=== PATIENT | female | born 1955 | race Caucasian/White ===

== ENCOUNTER 2021-04-07 11:48 | Outpatient (REF) | payer MEDICAID, SELFPAY ==
--- NOTE | ~2021-04-07 | XR_ITS ---
EXAMINATION: XR FOOT, RIGHT CLINICAL INFORMATION: Trauma/dropped something on foot. COMPARISON: None TECHNIQUE: AP, lateral, and oblique views of the right foot. FINDINGS: No fracture or dislocation is seen. There is hallux valgus deformity and degenerative change at the first MTP joint. Joint spaces are otherwise normal. There is soft tissue swelling adjacent to the first MTP joint. Soft tissues are otherwise normal. XR/XR foot RT min 3V IMPRESSION: No fracture is seen. Degenerative change and hallux valgus deformity at the first MTP joint.
== END 2021-04-07 11:49 | disposition home or self-care (01) ==
LOC: HO.XRAY 11:48
PROVIDERS: Absent Provider Internal Medicine; PCP Internal Medicine; Visit Provider General Practice
DX: S99.921D Unspecified injury of right foot, subsequent encounter (principal)
CPT/HCPCS: 73630

== ENCOUNTER 2021-11-15 13:56 | Outpatient (REF) | payer MEDICAID, SELFPAY ==
--- NOTE | ~2021-11-15 | XR_ITS ---
EXAMINATION: XR foot RT min 3V, XR foot LT min 3V CLINICAL INFORMATION: Foot pain COMPARISON: Foot radiographs 04/07/2021 TECHNIQUE: 3 views of the bilateral feet XR/XR foot LT min 3V FINDINGS/IMPRESSION: RIGHT FOOT: No fracture or dislocation. Hallux valgus deformity of the first metatarsophalangeal joint with mild degenerative narrowing. Joint spaces are otherwise maintained. No cortical erosion. No joint effusion. Soft tissues are unremarkable. LEFT FOOT: No fracture or dislocation. Hallux valgus deformity of the first metatarsophalangeal joint with mild degenerative changes and lateral subluxation of the first proximal phalanx with respect to the metatarsal head. Degenerative spurring of the dorsal midfoot. No cortical erosion. No joint effusion. Soft tissues are unremarkable.
--- NOTE | ~2021-11-15 | XR_ITS ---
EXAMINATION: XR foot RT min 3V, XR foot LT min 3V CLINICAL INFORMATION: Foot pain COMPARISON: Foot radiographs 04/07/2021 TECHNIQUE: 3 views of the bilateral feet XR/XR foot RT min 3V FINDINGS/IMPRESSION: RIGHT FOOT: No fracture or dislocation. Hallux valgus deformity of the first metatarsophalangeal joint with mild degenerative narrowing. Joint spaces are otherwise maintained. No cortical erosion. No joint effusion. Soft tissues are unremarkable. LEFT FOOT: No fracture or dislocation. Hallux valgus deformity of the first metatarsophalangeal joint with mild degenerative changes and lateral subluxation of the first proximal phalanx with respect to the metatarsal head. Degenerative spurring of the dorsal midfoot. No cortical erosion. No joint effusion. Soft tissues are unremarkable.
--- NOTE | ~2021-11-15 | XR_ITS ---
EXAMINATION: XR cervical spine 5V CLINICAL INFORMATION: Pain COMPARISON: None TECHNIQUE: 5 views of the cervical spine were obtained. XR/XR cervical spine 5V FINDINGS/IMPRESSION: The cervical spine is visualized to the level of C7 on the lateral view. Loss of the usual cervical spine lordosis which may be due to positioning or muscle spasm. 2 mm of anterolisthesis of C4 on C5. Vertebral body heights are maintained. Lateral masses of C1 are well aligned on C2. Visualized portion of the dens is intact. Moderate degenerative disc disease at C5-C6, manifested by loss of disc space height, degenerative spurring and facet arthropathy. No significant neural foraminal narrowing. No prevertebral soft tissue swelling. Partially imaged median sternotomy wires and mediastinal surgical clips.
== END 2021-11-15 13:57 | disposition home or self-care (01) ==
LOC: HO.XRAY 13:56
PROVIDERS: PCP Internal Medicine; Visit Provider Internal Medicine
DX: M54.2 Cervicalgia (principal); M79.671 Pain in right foot; M79.672 Pain in left foot
CPT/HCPCS: 72050; 73630

== ENCOUNTER 2022-04-28 09:00 | Outpatient (RCR) | payer MEDICAID, SELFPAY | END 2022-04-29 09:47 | disposition home or self-care (01) | LOC: HO.PTCHIC 09:00 | PROVIDERS: PCP Internal Medicine; Visit Provider Internal Medicine | DX: M54.2 Cervicalgia (principal) | CPT/HCPCS: 97110; 97140; 97161; 97162 ==

== ENCOUNTER 2023-09-29 09:18 | Outpatient (REF) | payer MEDICARE, MEDICAID, SELFPAY ==
[2023-09-29 14:30] LABS: MANUAL DIFF FLAG NO
[2023-09-29 14:36] LABS: Basophils Percent Auto 0.6 % (0-2); Eosinophils Absolute Auto 0.1 X10*3/uL (0.0-0.4); Eosinophils Percent Auto 1.2 % (0-4); Hematocrit 41.8 % (37.0-47.0); Hemoglobin 13.7 g/dl (12.0-16.0); Imm Gran Abs Auto 0.01 X10*3/uL (0.00-0.03); Imm Gran Pct Auto 0.2 % (0.0-0.4); Lymphocytes Absolute Auto 1.9 X10*3/uL (1.2-4.9); Lymphocytes Percent Auto 38.4 % (20-40); Mean Corpuscular HGB Conc 32.8 g/dl (31.0-35.0); Mean Corpuscular Volume 88.4 fL (80.0-98.0); Mean Platelet Volume 11.4 fL (9.4-12.3); Monocytes Absolute Auto 0.3 X10*3/uL (0.1-1.2); Monocytes Percent Auto 6.3 % (2-11); Neutrophils Absolute Auto 2.7 x10*3/uL (2.0-8.3); Neutrophils Percent Auto 53.3 % (45-73); Platelet Count 224 X10*3/uL (160-400); Red Blood Count 4.73 X10*6/uL (4.20-5.50); Red Cell Distribution Width 13.8 % (11.0-16.0); White Blood Count 5.1 X10*3/uL (4.8-10.8)
[2023-09-29 14:57] LABS: Alanine Aminotransferase 24 U/L (0-31); Albumin Level 4.3 g/dL (3.5-5.0); Alkaline Phosphatase 94 U/L (39-117); Anion Gap 12 (12-20); Aspartate Amino Transferase 21 U/L (5-31); Bilirubin Total 0.6 mg/dL (0.0-1.0); Blood Urea Nitrogen 21 mg/dL (9-16); Calcium 9.4 mg/dL (8.4-10.2); Carbon Dioxide 27 mmol/L (22-29); Chloride 104 mmol/L (96-108); Cholesterol 148 mg/dL (<200); Estimated Glomerular Filt Rate > 60; Glucose Random 113 mg/dL (60-115); HDL Cholesterol 31 mg/dL (>40); LDL Cholesterol Calculated 58 mg/dL (<100); Potassium 4.2 mmol/L (3.3-5.1); Sodium 139 mmol/L (135-145); Total Protein 7.2 g/dL (6.5-8.0); Triglycerides 298 mg/dL (<150)
[2023-09-29 15:14] LABS: TSH reflex Free T4 5.64 uIU/mL (0.32-4.0)
[2023-09-29 15:48] LABS: Free T4 (Free Thyroxine) 1.08 ng/dL (0.71-1.85)
== END 2023-09-29 09:19 | disposition home or self-care (01) ==
LOC: HO.CHCLDS 09:18
PROVIDERS: Visit Provider Internal Medicine
DX: E11.69 Type 2 diabetes mellitus with other specified complication (principal)
CPT/HCPCS: 36415; 80053; 80061; 84439; 84443; 85025

== ENCOUNTER 2024-03-22 12:44 | Outpatient (REF) | payer MEDICARE, MEDICAID, SELFPAY ==
[2024-03-22 14:53] LABS: Cholesterol 128 mg/dL (<200); HDL Cholesterol 34 mg/dL (>40); LDL Cholesterol Calculated 64 mg/dL (<100); Triglycerides 154 mg/dL (<150)
[2024-03-22 15:08] LABS: TSH reflex Free T4 0.06 uIU/mL (0.32-4.0)
[2024-03-22 19:16] LABS: Free T4 (Free Thyroxine) 1.11 ng/dL (0.71-1.85)
[2024-03-23 04:14] LABS: ~HepC Num1 0.12 S/CO (0.00-0.79); ~Hepatitis C Antibody Nonreactive (Nonreactive)
== END 2024-03-22 12:45 | disposition home or self-care (01) ==
LOC: HO.CHCLDS 12:44
PROVIDERS: Visit Provider Internal Medicine
DX: E03.8 Other specified hypothyroidism (principal); E78.2 Mixed hyperlipidemia; I10 Essential (primary) hypertension; E11.69 Type 2 diabetes mellitus with other specified complication
CPT/HCPCS: 36415; 80061; 84439; 84443; 86803

== ENCOUNTER 2025-02-05 07:45 | Outpatient (REF) | payer MEDICARE, MEDICAID, SELFPAY ==
--- NOTE | ~2025-02-05 | CT_ITS ---
EXAMINATION: CT HEAD WITHOUT CONTRAST CLINICAL INFORMATION: History of a fall with memory disturbances and headache COMPARISON: None available. TECHNIQUE: Contiguous axial imaging was performed from the skull base to vertex without intravenous administration of contrast. This CT examination was performed using dose optimization techniques as appropriate, variously including the following: *Automated exposure control *Adjustment of mA and/or kV according to patient size (this includes techniques or standardized protocols for targeted exams where dose is matched to indication/reason for exam; i.e. extremities or head) *Use of iterative reconstruction technique DLP: 779 mGy-cm FINDINGS: No acute intracranial hemorrhage, mass effect, midline shift, hydrocephalus or herniation. Dick-white matter differentiation is normal. Posterior cranial fossa contents demonstrated no gross mass effect or intracranial hemorrhage. Sellar/suprasellar region demonstrated no gross masses. Craniocervical junction demonstrates normal position of the cerebellar tonsils. Calcified plaques in the cavernous supracavernous segments both ICAs. Poor pneumatization frontal sinuses. No air-fluid levels in the included paranasal sinuses. Tympanic cavities and mastoid antrums are aerated. Poor pneumatization mastoid air cells. CT/CT head/brain wo IV con IMPRESSION: No acute intracranial hemorrhage or gross abnormality by CT. Atherosclerosis disease. Electronically signed by: Roger Arteaga MD 02/05/2025 01:08 PM EDT
--- OUTSIDE RECORDS SUMMARY | 2025-02-05 07:47 | XMS_ITS | Encounter Summary ---
Author Organization [employer] Address [address] [facility] 7[address] [place] [address] Care Team Providers Care Automotive Shop Foreman Name Role Phone Celia Butler MD Primary Care Provider [phone] Encounter Details Date Type Department Care Team ([facility] st Contact Info) Description 03/22/2024 Orders Only [facility] CHC MED & PEDS [address] [place], [place] [phone] Celia Butler MD [address] [place] [address] Other specified hypothyroidism (Primary Dx); Chronic pain syndrome; Primary osteoarthritis, other specified site; Primary osteoarthritis of both knees Social History Tobacco Use Types Packs/Day Years Used Date Smoking Tobacco: Former Cigarettes Q uit: 08/07/2016 Passive Smoke Exposure: Never Smokeless Tobacco: Never Alcohol Use Standard Drinks/Week Comments Never 0 (1 standard drink = 0.6 oz pur e alcohol) Depression Answer Date Recorded Patient Health Questionnaire-9 Score 7 03/21/2024 Patient Health Questionnaire-9 Score 7 03/21/2024 Last PHQ-9: Questionnaire Data Not on file 0 03/21/2024 Housing Stability Answer Date Recorded What is your housing situation today? I have merrill lackey 10/18/[address] you li ve. Do you have problems with any of the following? None of the above 10/18/2023 Food Insecurity Answer Date Recorded Within the past 12 months, y ou worried that your food would run out before you got money to buy more: Never True 10/18/2023 Within the past 12 months,th e food you bought just didn't last and you didn't have enough money to get more: Never True Transportation Answer Date Recorded In the past 12 months, has l ack of transportation kept you from medical appts, meetings, work or from getting things needed for daily living? No 10/18/2023 Utilities Answer Date Recorded In the past 12 months, has t he electric, gas, oil or water company threatened to shut off services in your home? No 10/18/2023 Depression Answer Date Recorded Patient Health Questionnaire-2 Score 3 03/21/2024 Comments Unknown Sex and Gender Information Value Date Recorded Sex Assigned at Female 06/06/2022 10:28 AM EDT Legal Sex Female 10:28 AM EDT Gender Identity Female 06/06/2022 10:28 AM EDT Sexual Orientation Straight 06/06/2022 10 :28 AM EDT documented as of this encounter Plan of Treatment Not on file documented as of this encounter Procedures Procedure Name Priority Date/Time Associated Diagnosis Comments T4, FREE Routine 03/22/2024 12:52 PM EDT Other specified hypothyroidism documented in this encounter Results * T4, Free (03/22/2024 12:52 PM EDT) Free T4 (Free Thyroxine) 1.11 0.71 - 1.85 ng/dL [facility] 03/22/2024 12:5 2 PM EDT 03/22/2024 2:23 PM EDT Celia Butler MD LAB BLOOD ORDERABLES Final Result [facility] [address] [place] [address] [phone] documented in this encounter Visit Diagnoses Diagnosis Other specified hypothyroidism- Primary Chronic pain syndrome Primary osteoarthritis, other specified site Primary osteoarthritis of both knees documented in this encounter Additional Health Concerns Assessment Noted Time PHQ-9 Depression Total Score: 7 03/21/20 24 3:53 PM EDT documented as of this encounter Care Teams Automotive Shop Foreman Relationship Specialty Start Date End Date Celia Butler MD [address] [place] [address] PCP - General Internal Medicine 05/05/15 documented as of this encounter
== END 2025-02-05 07:46 | disposition home or self-care (01) ==
LOC: HO.CT 07:45
PROVIDERS: PCP Internal Medicine; Visit Provider Internal Medicine
DX: R51.9 Headache, unspecified (principal); R41.3 Other amnesia
CPT/HCPCS: 70450

== ENCOUNTER → 2025-02-05 07:49 | Outpatient (BNV) | payer MEDICARE, MEDICAID, SELFPAY | PROVIDERS: PCP Internal Medicine; Visit Provider Radiology Diagnostic Radiology | DX: I67.2 Cerebral atherosclerosis (principal) | CPT/HCPCS: 70450 ==

== ENCOUNTER 2025-03-28 11:14 | Outpatient (REF) | payer MEDICARE, MEDICAID, SELFPAY ==
--- OUTSIDE RECORDS SUMMARY | 2016-07-04 01:00 | XMS_ITS | Encounter Summary ---
Author Organization [facility] Address [address] [facility] [address] [place] [address] Phone Care Team Providers Care Paramedic Supervisor Name Role Phone Gabby Medinafer Primary Care Provider [phone] Encounter Details Date Type Department Care Team (Late st Contact Info) Description 07/04/2016 Hospital Encounter [facility] General Imaging [address] [place] [address] Audi Ramirez MD 15 [facility]/Admin Bldg/Carlos Benavides [facility]/Floor [address] [place] [address] [email or web address] Social History Tobacco Use Types Packs/Day [...] (No Interpretation) (07/04/2016 12:00 AM EST) Narrative [facility] IMG INTERFACES - 08/23/2016 11:50 AM EST This study is for PACS storage only and not for interpretation. Audi Ramirez MD IMG OUTSIDE IMAGING W/OUT INTERP RETATION Final Result [facility] documented in this encounter Visit Diagnoses Not on filedocumented in this encounter Care Teams Paramedic Supervisor Relationship Specialty Start Date End Date Raissa Medina DO [address] [place] [phone] PCP - General Family Medicine 01/05/15 08/16/16 documented as of this encounter Additional Source Comments The information contained in this document represents components of the legal health record. It is not the complete legal health record.[facility]
--- OUTSIDE RECORDS SUMMARY | 2025-03-28 11:21 | XMS_ITS | Encounter Summary ---
Author Organization [employer] Address [address] [facility] 7t [place] [address] Care Team Providers Care Geotechnicial Properties Technician Name Role Phone Celia Butler MD Primary Care Provider [phone] Encounter Details Date Type Department Care Team ([facility] st Contact Info) Description 03/22/2024 Orders Only [facility] CHC MED & PEDS [address] [employer], [place] [phone] Celia Butler MD [address] [place] [address] Other specified hypothyroidism (Primary Dx); Chronic pain [...] as of this encounter Plan of Treatment Upcoming Encounters Date Type Department Care Team (Late st Contact Info) Description 04/28/2025 10:00 AM EDT Clinical Support [facility] [address] [place] [address] documented as of this encounter Procedures Procedure Name Priority Date/Time Associated Diagnosis Comments T4, FREE Routine 03/22/2024 12:52 PM EDT Other specified hypothyroidism documented in this encounter Results * T4, Free (03/22/2024 12:52 PM EDT) Free T4 (Free Thyroxine) 1.11 0.71 - 1.85 ng/dL [facility] 03/22/2024 12:5 2 PM EDT 03/22/2024 2:23 PM EDT us Celia Butler MD LAB BLOOD ORDERABLES Final Result [facility] [address] [place] [address] [phone] documented in this encounter Visit Diagnoses Diagnosis Other specified hypothyroidism- Primary Chronic pain syndrome Primary osteoarthritis, other specified site Primary osteoarthritis of both knees documented in this encounter Additional Health Concerns Assessment Noted Time PHQ-9 Depression Total Score: 7 03/21/20 24 3:53 PM EDT documented as of this encounter Care Teams Geotechnicial Properties Technician Relationship Specialty Start Date End Date Celia Butler MD [address] [place] [id number] PCP - General Internal Medicine 05/05/15 documented as of this encounter
[2025-03-28 16:43] LABS: Microalbum/Creatinine Ratio Ur 6.0 ug/mg cr (<30)
[2025-03-28 16:47] LABS: Anion Gap 13 (12-20); Blood Urea Nitrogen 15 mg/dL (9-16); Calcium 9.4 mg/dL (8.4-10.2); Carbon Dioxide 24 mmol/L (22-29); Chloride 105 mmol/L (96-108); Estimated Glomerular Filt Rate > 60; Potassium 4.2 mmol/L (3.3-5.1); Sodium 138 mmol/L (135-145)
[2025-03-28 17:10] LABS: Folate 7.4 ng/mL (> or = 4.0); Vitamin B12 297 pg/mL (200-900)
== END 2025-03-28 11:15 | disposition home or self-care (01) ==
LOC: HO.CHCLDS 11:14
PROVIDERS: Visit Provider Internal Medicine
DX: E11.69 Type 2 diabetes mellitus with other specified complication (principal); R41.3 Other amnesia
CPT/HCPCS: 36415; 80048; 82043; 82570; 82607; 82746; 84443

== ENCOUNTER 2025-04-21 10:38 | Outpatient (AMB) | payer MEDICARE, MEDICAID, SELFPAY ==
--- OUTSIDE RECORDS SUMMARY | 2016-07-04 01:00 | XMS_ITS | Encounter Summary ---
Author Organization [facility] Address [address] [facility] [address] [place] [phone] Phone Care Team Providers Care Bobbin Collector Name Role Phone Gabby Medinafer Primary Care Provider [phone] Encounter Details Date Type Department Care Team (Late st Contact Info) Description 07/04/2016 Hospital Encounter [facility] General Imaging [address] [place] [address] Audi Ramirez MD [address] [facility]/Admin Bldg/Carlos Benavides [facility]/Floor [address] [place] [address] [email or web address] Social History Tobacco Use Types Packs/Day Years Used Date Smoking Tobacco: Former Cigarettes Q uit: 07/13/2016 Smokeless Tobacco: Never Comments:1/2ppd x 3 years, n one x 7yrs , previously 1ppd for years Alcohol Use Standard Drinks/Week Comments No 0 (1 standard drink = 0.6 oz pur e alcohol) rare Education Answer Date Recorded Are you interested in more education? Not on jada e 12/01/2022 Are you concerned about learning? Not on file 12/01/2022 No 12/01/2022 No 12/01/2022 Digital Access Answer Date Recorded No 12/30/2022 No 12/30/2022 Reliable internet access at home? Not on file 12/30/2022 Device with a working camera? Not on file Comments Unknown Sex and Gender Information Value Date Recorded Sex Assigned at Not on file Legal Sex Female 7:22 PM EST Gender Identity Not on file Sexual Orientation Not on file documented as of this encounter Functional Status * Question Answer Date of Assessment Author Q1: How often do you have a drink containing alcohol? Never 08/21/2018 4:07 PM EST Shaheed Reynoso CNP * Patient is deaf or has serious difficulty with hearing Answer Date of Assessment Author No 01/03/2015 11:14 AM Ameena Lazaro MD * Patient is blind or has serious difficulty with seeing, even when wearing glasses Answer Date of Assessment Author No 01/03/2015 11:14 AM Ameena Lazaro MD * Patient has serious difficulty walking or climbing stairs (5yr old or older) Answer Date of Assessment Author No 01/03/2015 11:14 AM Ameena Lazaro MD * Patient has serious difficulty dressing or bathing (5yr old or older) Answer Date of Assessment Author No 01/03/2015 11:14 AM Ameena Lazaro MD * Patient has serious difficulty doing errands alone such as visiting a doctor???s office or shopping, due to physical, mental, or emotional condition (15 years old or older) Answer Date of Assessment Author No 01/03/2015 11:14 AM Ameena Lazaro MD documented as of this encounter Mental Status * Patient has serious difficulty concentrating, remembering, or making decisions due to physical, mental, or emotional condition Answer Entry Date Author No 01/03/2015 11:14 AM Ameena Lazaro MD documented in this encounter Plan of Treatment Not on file documented as of this encounter Procedures Procedure Name Priority Date/Time Associated Diagnosis Comments US CHEST OUTSIDE (NO INTERPRETATION) Routine 07/04/2016 12:00 AM EST documented in this encounter Results * US Chest Outside (No Interpretation) (07/04/2016 12:00 AM EST) Narrative [facility] IMG INTERFACES - 08/23/2016 11:50 AM EST This study is for PACS storage only and not for interpretation. Audi Ramirez MD IMG OUTSIDE IMAGING W/OUT INTERP RETATION Final Result [facility] documented in this encounter Visit Diagnoses Not on filedocumented in this encounter Care Teams Bobbin Collector Relationship Specialty Start Date End Date Raissa Medina DO [address] [place] [id number] PCP - General Family Medicine 01/05/15 08/16/16 documented as of this encounter Additional Source Comments The information contained in this document represents components of the legal health record. It is not the complete legal health record.[facility]
--- NOTE | 2025-04-21 10:40 | A.OFFVIS_ITS ---
Vital Signs 3 04/21/25 10:41 Height 5 ft 2.2 in Weight 151 lb 2 oz BMI 27.5 BP 134/64 Blood Pressure Location Lt brachial Position Sitting Pulse 71 Pulse Source Pulse Oximeter Pulse Oximetry (%) 98 Oxygen Delivery Method Room Air Intake Visit Reasons: CHRONIC NECK PAIN WITH OSTEOARTHRITIS Intake Note: Pain today 02/13 Dry Kiln Operator Helper Required: Yes Dry Kiln Operator Helper Language: Kittitian Dry Kiln Operator Helper Services: Dry Kiln Operator Helper Present Dry Kiln Operator Helper Name: Sydney Murphy Information Interpreted: non-clinical & clinical Accompanied by: Daughter Allergies acetaminophen Allergy (Mild, Verified 04/21/25 10:43) drop in body temp amlodipine Allergy (Mild, Verified 04/21/25 10:43) Muscle Pain sodium Allergy (Mild, Verified 04/21/25 10:43) Itching HPI Comments Details: The patient is a 69-year-old female presenting with chronic neck pain and osteoarthritis. The chronic neck pain began approximately five to six years ago without any inciting events such as trauma, falls or accidents. The pain is constant and exacerbated by looking up, with associated stiffness and aching. The patient has undergone physical therapy at [facility] 6 months ago, which included massage that was helpful, but exercises did not alleviate the pain. She also underwent posterior neck lipoma excision in the past and noted that the area still remains enlarged and plans to see surgeon again. The patient has a history of osteoarthritis diagnosed in 2021, with imaging showing disc degeneration but no herniation or stenosis. She has tried various treatments including lidocaine patches and ibuprofen, but cannot take Tylenol due to adverse reactions experienced in the past such as hypothermia. The patient has a history of diabetes mellitus, which is controlled with metformin and dietary adjustments. She also has a history of bilateral hip replacements, lumbar surgery in [place] and cardiac stents, and she takes aspirin as a blood thinner. The patient denies smoking, alcohol, or marijuana use, but consumes 2 cups of black coffee daily. The patient reports numbness and tingling in her hands, denies history of carpal tunnel syndrome or diabetic neuropathy. She lives with her family and is able to perform daily activities independently but with increased pain in her neck. - Onset: Approximately five to six years ago, without any inciting events. - Quality: Constant, aching pain, exacerbated by looking up. - Location: Neck, with associated stiffness. - Exacerbating factors: Looking up, side rotations. - Relieving factors: Massage therapy was helpful. Topical lidocaine in cream and patch forms. - Interference: Affects daily activities, particularly those involving neck movement. - Affect: Pain impacts daily activities and requires careful movement. - Analgesia: Uses ibuprofen and lidocaine patches; cannot use Tylenol due to adverse effects. - Adverse Effects: Tylenol causes increased body temperature. - Activities of Daily Living: Pain affects ability to perform house chores and recreational activities. - Aberrant Drug Related Behaviors: None reported. Oswestry Neck Pain Disability Score=24 [facility] Medical History (Updated 04/21/25 @ 15:10 by GRIS Gonsalez) Type 2 diabetes mellitus without complication, without long-term current use of insulin Chronic neck pain with osteoarthritis determined by x-ray Mixed hyperlipidemia Right flank pain Hypertension Surgical History (Updated 04/21/25 @ 15:14 by GRIS Gonsalez) History of back surgery Hx of bilateral hip replacements S/P excision of lipoma H/O heart artery stent Social History Household Members: Spouse Alcohol intake: never Patient Tobacco Use Status: Former Tobacco user e-Cigarette/Vaping Use: Never Used Review of Systems Const Details: - Musculoskeletal: Reports chronic neck pain and stiffness, exacerbated by certain movements. - Neurological: Reports numbness and tingling in hands, denies headaches. All systems reviewed & are unremarkable except as noted in HPI and below Physical Exam Vital Signs: BMI result Body Mass Index 27.5 General: Appears afebrile. Alert and oriented. Mood and affect appropriate. Follows and participates in conversation appropriately. Respiratory effort is unlabored. No cough. No nasal discharge. Able to transition from sit to stand unassisted. Ambulates with bilaterally normal heel strike and toe off. Neck Other: Patient with decreased cervical ROM in all planes/especially with left lateral rotations. Cervical extension reproduces moderate to severe, flexion is intact and reproduces tightness discomfort. Spurling compression test negative. Elvey's tension test negative bilaterally. Lhermitte's test was negative. DTR intact, +2 and symmetrical. Patient demonstrated 5/5 motor strength of bilateral upper extremities. Strength testing in upper extremities showed no deficits, hydrologist strength intact. 2 + radial pulses. No paravertebral tenderness over facet joints bilaterally. Multiple taut bands palpated throughout bilateral upper trapezius muscles. Neck: Yes normal visual inspection, Yes no lymphadenopathy, Yes supple, No anterior neck swelling, No torticollis, Yes no JVD, No prominent supraclavicular fat pad and Yes prominent dorsocervical fat pad Back/Spine/Pelvis Cervical Spine: No collar present, loss of normal cervical lordosis, cervical muscular tenderness, pain with cervical ROM, Cervical spine scars present (posterior neck, h/o lipoma excision), cervical spasm, No Cervical spine tenderness and No step off deformity Thoracic/Lumbar Spine: thoracic and lumbar spine normal to inspection, Thoracic/lumbar spine scar(s), thoraco-lumbar ROM limited, No thoracic spinal tenderness and No lumbar spinal tenderness Results Reviewed Results Reviewed: XR cervical spine 5V 11/15/21 CLINICAL INFORMATION: Pain COMPARISON: None TECHNIQUE: 5 views of the cervical spine were obtained. FINDINGS/IMPRESSION: The cervical spine is visualized to the level of C7 on the lateral view. Loss of the usual cervical spine lordosis which may be due to positioning or muscle spasm. 2 mm of anterolisthesis of C4 on C5. Vertebral body heights are maintained. Lateral masses of C1 are well aligned on C2. Visualized portion of the dens is intact. Moderate degenerative disc disease at C5-C6, manifested by loss of disc space height, degenerative spurring and facet arthropathy. No significant neural foraminal narrowing. No prevertebral soft tissue swelling. Partially imaged median sternotomy wires and mediastinal surgical clips. Assessment & Plan Assessment & Plan (1) Cervical spondylosis: Code(s): M47.812 - Spondylosis without myelopathy or radiculopathy, cervical region Category: Medical (2) Degenerative disc disease, cervical: Code(s): M50.30 - Other cervical disc degeneration, unspecified cervical region Category: Medical (3) Muscle spasms of neck: Code(s): M62.838 - Other muscle spasm Category: Medical Plan The plan includes obtaining MRI records from [facility] to further evaluate the extent of arthritis and disc degeneration. The patient will be scheduled for diagnostic injections to confirm axial, facet mediated neck pain and determine the effectiveness of potential interventions. If the diagnostic injections provide significant pain relief, the patient may consider radiofrequency ablation or nerve stimulation as longer-term solutions. The patient is advised to continue current medications, including ibuprofen and lidocaine patches, and to avoid Tylenol due to previous adverse reactions. Schedule Bilateral Diagnostic C4-C5-C6 MBB with local and fluoroscopy. Expectations, risks and benefits were reviewed. Patient is aware she will be contacted to schedule this procedure. All questions and concerns have been answered and patient agreed with the treatment plan. Follow up after injection and sooner as needed. Patient was informed and verbally consented to the use of an ambient scribe for clinic note documentation during this visit. Coding Level of Care Code New Pt Level 4 (96054) Diagnoses Cervical spondylosis M47.812 Degenerative disc disease, cervical M50.30 Muscle spasms of neck M62.838
[2025-04-21 10:41] VITALS: BP 134/64; PULSE 71; O2SAT 98; BMI 27.5
--- OUTSIDE RECORDS SUMMARY | 2025-04-21 13:48 | XMS_ITS | Encounter Summary ---
Author Organization [employer] Address [address] [facility] 7t [place] [address] Care Team Providers Care Trench Pipe Layer Helper Name Role Phone Celia Butler MD Primary Care Provider [phone] Encounter Details Date Type Department Care Team ([facility] st Contact Info) Description 06/19/2023 Orders Only [facility] PEDS [address] [place], [place] [id number] Celia Butler MD [address] [place] [address] Muscle spasm (Primary Dx) Social History Tobacco Use Types Packs/Day Years Used Date Smoking Tobacco: Former Cigarettes Q uit: 08/07/2016 Passive Smoke Exposure: Never Smokeless Tobacco: Never Alcohol Use Standard Drinks/Week Comments Never 0 (1 standard drink = 0.6 oz pur e alcohol) Housing Stability Answer Date Recorded What is your housing situation today? I have merrill lackey 05/22/[address] you li ve. Do you have problems with any of the following? None of the above 05/22/2023 Food Insecurity Answer Date Recorded Within the past 12 months, y ou worried that your food would run out before you got money to buy more: Never True 05/22/2023 Within the past 12 months,th e food you bought just didn't last and you didn't have enough money to get more: Never True Transportation Answer Date Recorded In the past 12 months, has l ack of transportation kept you from medical appts, meetings, work or from getting things needed for daily living? No 05/22/2023 Utilities Answer Date Recorded In the past 12 months, has t he electric, gas, oil or water company threatened to shut off services in your home? No 05/22/2023 Depression Answer Date Recorded Patient Health Questionnaire-2 Score 0 07/11/2022 Comments Unknown Sex and Gender Information Value [...] Description 04/28/2025 10:00 AM EDT Clinical Support [facility] & PEDS [address] [place] [address] documented as of this encounter Visit Diagnoses Diagnosis Muscle spasm- Primary Spasm of muscle documented in this encounter Care Teams Trench Pipe Layer Helper Relationship Specialty Start Date End Date Celia Butler MD [address] [place] [address] PCP - General Internal Medicine 05/05/15 documented as of this encounter
--- OUTSIDE RECORDS SUMMARY | 2025-04-21 13:48 | XMS_ITS | Encounter Summary ---
Author Organization [facility] Address [address] [place] [address] Phone Care Team Providers Care Boat Builder And Repairer Name Role Phone Celia Butler MD Primary Care Pr ovider LotEitan ang MD Unavailable [phone] Unknown, Unknown Primary Care Provider Celia Panda MD Primary Care Pr ovider Encounter Details Date Type Department Care Team (Late st Contact Info) Description 09/13/2016 Prep for Surgery VIRTUAL DEPARTMENT [address] [place] [phone] Rose Matthew MD Social History Tobacco Use Types Packs/Day Years Used Date Smoking Tobacco: Former Cigarettes Q uit: 07/13/2016 Smokeless Tobacco: Never Comments:1/2ppd x 3 years, n one x 7yrs , previously 1ppd for years Alcohol Use Standard Drinks/Week Comments Yes 0 (1 standard drink = 0.6 oz pur e alcohol) rare Comments Unknown Sex and Gender Information Value Date Recorded Sex Assigned at Not on file Legal Sex Female 7:22 PM EST Gender Identity Not on file Sexual Orientation Not on file documented as of this encounter Functional Status * Patient is deaf or has serious [...] Ameena Lazaro MD documented in this encounter H&P Notes * Rose Matthew MD - 09/13/2016 5:44 AM EST 24 HOUR DAY OF SURGERY UPDATE No changes to medical history To OR for CABG. Surgical consent in chart documented in this encounter Plan of Treatment Not on file documented as of this encounter Visit Diagnoses Not on filedocumented in this encounter Care Teams Boat Builder And Repairer Relationship Specialty Start Date End Date Celia Butler MD [address] [address] PCP - General Internal Medicine 08/17/16 06/04/17 Unknown, Pablo, [address] [place] [address] PCP - General 06/05/17 08/20/18 Celia Butler MD [address] [address] PCP - General Internal Medicine 08/21/18 Eitan Rowe MD [address] [place] [phone] Data Collector Cardiology 08/17/16 documented as of this encounter Additional Source Comments The information contained in this document represents components of the legal health record. It is not the complete legal health record.[facility]
--- OUTSIDE RECORDS SUMMARY | 2025-04-21 13:48 | XMS_ITS | Clinical Summary ---
Author Organization [facility] Address [address] [place] [address] Phone Care Team Providers Care Customer Program Specialist Name Role Phone Eitan Rowe MD Unavailable [phone] Celia Butler MD Primary Care Pr ovider Allergies Active Allergy Reactions Criticality Noted Date Comments Acetaminophen 05/05/2015 Other reaction(s): drop in body temp Amlodipine 08/24/2016 Muscle aches and pains, couldn't move Other reaction(s): muscle pain, generalized pain, swelling Other reaction(s): Muscle pain Bleach (Sodium Hypochlorite) Itching Medium 08/21/2018 Sodium Hypochlorite Itching Medium 08/21/2018 Tylenol (Acetaminophen) Medium 02/04/2015 Severe headache Medications levothyroxine (SYNTHROID, LEVOTHROID) 125 MCG tablet Take 125 mcg by mouth daily. Active rosuvastatin (CRESTOR) 20 MG tablet Take 20 mg by mouth daily. Active cholecalciferol (VITAMIN D3) 1,000 unit tablet Take 1,000 Units by mouth daily. Active nitroglycerin (NITROSTAT) 0.[address] 0.4 mg under the tongue every 5 (five) minutes as needed for chest pain. Reported on 09/13/2016 Active aspirin 325 MG EC tablet Take 1 tablet (325 mg total) by mouth daily. 100 tablet 3 7 Active Additional Information Patient taking differently: 81 mgOral Daily, Reported on 05/05/2023 metoprolol succinate (TOPROL-XL) 25 MG 24 hr tablet Take 1 tablet (25 mg total) by mouth 2 (two) times a day. 60 tablet 2 7 Active citalopram (CELEXA) 20 MG tablet Take 20 mg by mouth daily. Active lidocaine-priloc justin (EMLA) cream Apply topically once. Active hydroCHLOROthiaz jayda (HYDRODIURIL) 12.5 MG tablet Take 12.5 mg by mouth daily. Active DULoxetine (CYMBALTA) 20 MG capsule Take 20 mg by mouth daily. Active ascorbic acid, vitamin C, (VITAMIN C) 500 MG tablet Take 500 mg by mouth daily. Active betamethasone dipropionate 0.05 % ointmentIndicati ons:Pruritus,Oth er psoriasis Apply topically 2 (two) times a day. To all itchy areas. Try to limit to 2 wks at a time. Avoid face, underarms, groin, areas with thin skin. 10/06/21- APPOINTMENT NEEDED FOR REFILLS 45 g 2 Active fluocinonide 0.05 % external solution Apply to scalp daily as needed for scaling on scalp 60 mL 3 3 Active ketoconazole (NIZORAL) 2 % shampooIndicatio ns:Psoriasis of scalp Apply topically 3 (three) times a week. Apply to damp scalp, lather, leave on 3-5 minutes, and rinse 10/06/21- APPOINTMENT NEEDED FOR REFILLS 120 mL 11 3 Active dulaglutide (TRULICITY) 0.75 mg/0.5 mL subcutaneous injection Inject 0.75 mg under the skin every 7 days. Active metFORMIN (GLUCOPHAGE) 850 MG tablet Take 850 mg by mouth 2 (two) times a day with meals. Active Active Problems Problem Noted Date Diagnosed Date Back pain 09/04/2018 MO (myocardial infarction) 08/21/2018 Coronary artery disease 08/21/2018 History of coronary artery bypass graft 08/21/19 19 Hypertension 08/21/2018 Coronary artery disease (CAD) excluded 7 Primary localized osteoarthrosis of pelvic regio n 02/04/2015 Arthritis of hip 01/03/2015 Osteoarthritis 01/03/2015 Osteoarthritis of hip 07/15/2013 Overview (09/27/2014): Osteoarthritis of pelvis Uncoded oa pelvis 09/17/2012 Overview (09/27/2014): oa pelvis Osteoarthritis of hip 05/10/2012 Overview (09/27/2014): Osteoarthritis of hip - 715.15; Left; HIP Immunizations Immunization Administration Dates Next Due Pneumococcal polysaccharide PPSV23 01/12/2013(De ferred: Other) Family History Medical History Relation Comments Coronary artery disease Brother CABG age 53 Diabetes Brother Coronary artery disease Father [place] 56 sandoval bseqent at 56 Colon cancer Mother age 86 Coronary artery disease Sister CABG age 57 Diabetes Sister Relation Status Comments Brother Alive Father Mother Sister Alive Social History Tobacco Use Types Packs/Day Years Used Date Smoking Tobacco: Former Cigarettes Q uit: 07/13/2016 Smokeless Tobacco: Never Tobacco Cessation:Counseling Given: Not Answered Comments:1/2ppd x 3 years, none x 7yrs , previously 1ppd for years [...] on file Sexual Orientation Not on file Last Filed Vital Signs Vital Sign Reading Time Taken Comments Blood Pressure 165/69 05/05/2023 8:15 AM EDT Pulse 74 05/05/2023 8:15 AM EDT Temperature 36.8 C (98.2 F) 05/05/2023 8:15 AM EDT Respiratory Rate 18 09/07/2018 12:02 PM EST Oxygen Saturation 98% 05/05/2023 8:15 AM EDT Inhaled Oxygen Concentration 1% 09/06/2018 7 :52 AM EST Weight 68.9 kg (152 lb) 05/05/2023 8:15 AM EDT Height 157.5 cm (5' 2 ) 05/05/2023 8:15 AM EDT Body Mass Index 27.8 05/05/2023 8:15 AM EDT Plan of Treatment Health Maintenance Due Date Last Done Comments DEPRESSION SCREENING 1969 SMOKING Hx and SMOKELESS TOBACCO SCREENING 1970 HEPATITIS C SCREENING 1975 COLOGUARD 2002 COLONOSCOPY 2002 COLORECTAL CANCER SCREENING 2002 FIT TEST 2002 FOBT 2002 SIGMOIDOSCOPY 2002 VIRTUAL COLONOSCOPY 2002 PNEUMOCOCCAL VACCINES (50+ years) (1 of 1 - PCV) 2007 ZOSTER VACCINES (1 of 2) 2007 TSH LEVEL 09/09/2017 09/09/2016 CREATININE LEVEL 09/07/2019 09/07/2018, , 09/06/2018, Additional history exists POTASSIUM LEVEL 09/07/2019 09/07/2018, 08/09, 09/06/2018, Additional history exists MAMMOGRAM 02/28/2020 02/27/2018, 02/27/2018 BLOOD PRESSURE 11/03/2023 05/05/2023 COVID-19 VACCINE ( season) 2024 11/06/2020, 10/09/2020 INFLUENZA VACCINE (#1) 2025 Adult Td,Tdap Booster 06/18/2025 06/18/2015, 004 SCREENING FOR DIABETES 07/01/2027 , 03/21/2024, 12/29/2022, Additional history exists RSV VACCINE (1 - 1-dose 75+ series) 2032 OSTEOPOROSIS SCREENING INITIAL (ONE-TIME) Completed 01/06/2023 HEPATITIS A VACCINES Aged Out No long er eligible based on patient's age to complete this topic HIB VACCINES Aged Out No longer eligi ble based on patient's age to complete this topic MENINGOCOCCAL VACCINES (ACWY) Aged Out No longer eligible based on patient's age to complete this topic MENINGOCOCCAL VACCINES (B) Aged Out N o longer eligible based on patient's age to complete this topic Medical Devices Implanted Type Area Carcass Washer Device Identifier Shelf Expiration Date Model / Serial / Lot Hip Replacements Bilat Cardiac Stent Procedures Procedure Name Priority Date/Time Associated Diagnosis Comments BD DXA SPINE AND FOREARM Routine 01/06/2023 2:36 PM EDT Screening for endocrine, metabolic and immunity disorder BASIC METABOLIC PANEL Routine 09/07/2018 7:01 AM EST TSH Routine 09/09/2016 12:07 PM EST Preoperative testing from Last 3 Months or Most Recently Relevant to Health Maintenance Results * BD DXA SPINE AND FOREARM (01/06/2023 2:36 PM EDT) Anatomical Region Laterality Modality Bone Density Bone Density 01/06/2023 2:54 PM EDT Impressions 01/15/2023 4:24 PM EDT The BMD fulfills the WHO classification for osteopenia. Baseline exam. Narrative 01/15/2023 4:24 PM EDT Reason for exam (per EHR order): Menopausal Additional clinical information obtained from the EHR: Bilateral hip arthroplasty. TECHNIQUE: Hologic bone densitometry. The least significant change for this machine is 0.022 g/cm2 for the lumbar spine, 0.027 g/cm2 for the total hip, and 0.023 g/cm2 for the radius. FINDINGS: Bone Density: Region: AP Spine (L1-L2). BMD (g/cm2): 1.065. T-score: 0.8. Z-score: 2.5. Classification: Normal. Region: Left 1/3 Radius. BMD (g/cm2): 0.618. T-score: -1.3. Z-score: 0.4. Classification: Osteopenia. World Health Organization criteria for BMD interpretation classify patients as: Normal (T-score at or above -1.0), Osteopenia (T-score between -1.0 and -2.5), Osteoporosis (T-score at or below -2.5). Procedure Note Latrice Ivory MD - 01/15/2023 Reason for exam (per EHR order): Menopausal Additional clinical information obtained from the EHR: Bilateral hiparthroplasty. TECHNIQUE: Hologic bone densitometry. The least significant change forthis machine is 0.022 g/cm2 for the lumbar spine, 0.027 g/cm2 for thetotal hip, and 0.023 g/cm2 for the radius. FINDINGS: Bone Density: Region: AP Spine (L1-L2). BMD (g/cm2): 1.065. T-score: 0.8. Z-score: 2.5. Classification: Normal. Region: Left 1/3 Radius. BMD (g/cm2): 0.618. T-score: -1.3. Z-score: 0.4. Classification: Osteopenia. World Health Organization criteria for BMD interpretation classifypatients as: Normal (T-score at or above -1.0), Osteopenia (T-score between -1.0 and -2.5), Osteoporosis (T-score at or below -2.5). IMPRESSION: The BMD fulfills the WHO classification for osteopenia. Baseline exam. us Sandra Esteban MD IMG BD BONE DENSITY DEXA Final Result * (ABNORMAL) Basic metabolic panel (09/07/2018 7:01 AM EST) SODIUM 137 136 - 145 mmol/L [facility] CHLORIDE 100 98 - 107 mmol/L [facility] POTASSIUM 4.0 3.4 - 5.0 mmol/L [facility] CO2 27 22 - 31 mmol/L [facility] BUN 13 6 - 23 mg/dL [facility] CREATININE 0.52 0.50 - 1.20 mg/dL [facility] GLUCOSE 162(H) 70 - 115 mg/dL [facility] CALCIUM 8.8 8.6 - 10.7 mg/dL [facility] EGFR 103 >60 mL/min/1.7 3m2 [facility] Comment:If patient is black, multiply result by 1.159. Estimated glomerular filtration rate calculated using the CKD-EPI equation. ANION GAP 10 3 - 15 mmol/L [facility] Blood 09/07/2018 7:01 AM EST 09/07/2018 7:15 AM EST us Fani Clemens TWISTER TENDER LAB BLOOD ORDERABLES Fi nal Result [facility] [address] [place] [address] * TSH (09/09/2016 12:07 PM EST) TSH 2.72 0.40 - 5.00 uIU/mL [facility] 09/09/2016 12:0 7 PM EST 09/09/2016 4:10 PM EST us Brenna Davis TWISTER TENDER LAB BLOOD ORDERABLES Final Res ult Performing Organization Address [facility] Co de Phone Number [facility] [address] [place] [address] from Last 3 Months or Most Recently Relevant to Health Maintenance Insurance [place] [id number] [facility] NET FULL MEDICARE PART A & B HEALTH SAFETY NET FULL [place] [employer] NET FULL SAFETY NET FULL MEDICARE PART A & B HEALTH SAFETY NET FULL MEDICARE PART A & B HEALTH SAFETY NET FULL MEDICARE PART A & B HEALTH SAFETY NET FULL Member Subscriber Plan / Payer (Ef fective 2024-Present) Name:Sara Emy L Relation to Subscriber:Self Name:EyadCesar abebeesteban Alvarado Payer ID:Not on file Group ID:Not on file Type:Medicaid Address: [place] [id number] HEALTH SAFETY NET FULL MEDICARE PART A & B Member Subscriber Plan / Payer (Ef fective 2022-Present) Name:Emy Ruiz Member ID:[id number] Relation to Subscriber:Self Name:Emy Ruiz Subscriber ID:[id number] Payer ID:[id number] Group ID:Not on file Type:Medicare Address: [facility] [address] [address] [facility] FULL Advance Directives For more information, please contact: [phone] (9AM - 5PM [facility], Monday-Monday) Documents on File Type Date Recorded Patient Child And Family Services Specialist Expl anation Healthcare Proxy 01/07/2015 9:04 AM * Full Code (Presumed) (Latest Code Status on File) Date Activated Date Inactivated Comments 09/04/2018 5:25 PM 09/07/2018 4:55 PM * Full Code (Presumed) Date Activated Date Inactivated Comments 09/04/2018 11:10 AM 09/04/2018 5:25 PM * Full Code (Presumed) Date Activated Date Inactivated Comments 09/13/2016 12:13 PM 09/19/2016 8:26 PM * Full Code (Presumed) Date Activated Date Inactivated Comments 01/03/2015 7:43 PM 01/06/2015 2:54 PM Care Teams Customer Program Specialist Relationship Specialty Start Date End Date Celia Butler MD [address] [address] PCP - General Internal Medicine 08/21/18 Eitan Rowe MD [address] [place] [address] Family And Divorce Legal Assistant Cardiology 08/17/16 Additional Source Comments The information contained in this document represents components of the legal health record. It is not the complete legal health record.[facility]
--- OUTSIDE RECORDS SUMMARY | 2025-04-21 13:48 | XMS_ITS | Encounter Summary ---
Author Organization [employer] Address [address] [facility] 7t [place] [address] Care Team Providers Care Artist Color Separation Name Role Phone Celia Butler MD Primary Care Provider [phone] Encounter Details Date Type Department Care Team ([facility] st Contact Info) Description 05/31/2023 Abstract [facility] MEDICINE [address] [place] [address] Celia Butler MD [address] [place] [address] Social History Tobacco Use Types Packs/Day Years Used Date Smoking Tobacco: Former Cigarettes Q uit: 08/07/2016 Passive Smoke Exposure: Never Smokeless Tobacco: Never Alcohol Use Standard Drinks/Week Comments Never 0 (1 standard drink = 0.6 oz pur e alcohol) Housing Stability Answer Date Recorded What is your housing situation today? I have merrillcristina lackey 05/22/[address] you [...] Upcoming Encounters Date Type Department Care Team ([facility] st Contact Info) Description 04/28/2025 10:00 AM EDT Clinical Support [facility] MED & PEDS [address] [place] [address] documented as of this encounter Procedures Procedure Name Priority Date/Time Associated Diagnosis Comments COLONOSCOPY Routine 07/05/2017 documented in this encounter Results * Hm Colonoscopy (07/05/2017) Colonoscopy Normal Normal Narrative Se[facility]ity Carr - 07/05/2017 Recommended 5 year follow up us Historical Provider HEALTH MAINTENANCE Final Result documented in this encounter Visit Diagnoses Not on filedocumented in this encounter Care Teams Artist Color Separation Relationship Specialty Start Date End Date Celia Butler MD [address] [place] [address] PCP - General Internal Medicine 05/05/15 documented as of this encounter
--- OUTSIDE RECORDS SUMMARY | 2025-04-21 13:48 | XMS_ITS | Encounter Summary ---
Author Organization [employer] Address [address] [facility] [address] [place] [address] Care Team Providers Care Irrigation Equipment Remover Name Role Phone Celia Butler MD Primary Care Provider [phone] Reason for Visit * Reason Comments Med Refill Encounter Details Date Type Department Care Team ([facility] st Contact Info) Description 04/20/2025 Refill [facility] [address] [place], [place] [phone] Celia Butler MD [address] [place] [address] Type 2 diabetes mellitus with other specified complication, without long-term current use of insulin ([facility]) Social History Tobacco Use Types Packs/Day Years [...] Upcoming Encounters Date Type Department Care Team ([facility] Contact Info) Description 04/28/2025 10:00 AM EDT Clinical Support [facility] MED [facility]ED[facility] [address] [place] [address] documented as of this encounter Visit Diagnoses Diagnosis Type 2 diabetes mellitus with other specified complication, without long-term current use of insulin ([facility]) documented in this encounter Additional Health Concerns Assessment Noted Time PHQ-9 Depression Total Score: 7 03/21/20 24 3:53 PM EDT documented as of this encounter Care Teams Irrigation Equipment Remover Relationship Specialty Start Date End Date Celia Butler MD [address] [place] [address] PCP - General Internal Medicine 05/05/15 documented as of this encounter
--- OUTSIDE RECORDS SUMMARY | 2025-04-21 13:48 | XMS_ITS | Encounter Summary ---
Author Organization [facility] Address [address] [facility] [address] [place] [address] Phone Care Team Providers Care Professor Of Chemistry Name Role Phone Eitan Rowe MD Unavailable [phone] Unknown, Unknown Primary Care Provider Celia Panda MD Primary Care Pr ovider Encounter Details Date Type Department Care Team (Late st Contact Info) Description 07/02/2018 Procedure Pass [facility] [address] [facility] [address] [place] [address] Social History Tobacco Use Types Packs/Day Years [...] hearing Answer Date of Assessment Author No 09/14/2016 6:28 PM Gera Ortiz PA-C * Patient is blind or has serious difficulty with seeing, even when wearing glasses Answer Date of Assessment Author No 09/14/2016 6:28 PM Gera Ortiz PA-C * Patient has serious difficulty walking or climbing stairs (5yr old or older) Answer Date of Assessment Author No 09/14/2016 6:28 PM Gera Ortiz PA-C * Patient has serious difficulty dressing or bathing (5yr old or older) Answer Date of Assessment Author No 09/14/2016 6:28 PM Gera Ortiz PA-C * Patient has serious difficulty doing errands alone such as visiting a doctor???s office or shopping, due to physical, mental, or emotional condition (15 years old or older) Answer Date of Assessment Author No 09/14/2016 6:28 PM Gera Ortiz PA-C documented as of this encounter Mental Status * Patient has serious difficulty concentrating, remembering, or making decisions due to physical, mental, or emotional condition Answer Entry Date Author No 09/14/2016 6:28 PM Gera Ortiz PA-C documented in this encounter Plan of Treatment Not on file documented as of this encounter Visit Diagnoses Not on filedocumented in this encounter Care Teams Professor Of Chemistry Relationship Specialty Start Date End Date Unknown, Unknown, [address] [place] [address] PCP - General 06/05/17 08/20/18 Celia Butler MD [address] [place] [address] PCP - General Internal Medicine 08/21/18 Eitan Rowe MD [address] [place] [address] Senior Health Consultant Cardiology 08/17/16 documented as of this encounter Additional Source Comments The information contained in this document represents components of the legal health record. It is not the complete legal health record.[facility]
--- OUTSIDE RECORDS SUMMARY | 2025-04-21 13:48 | XMS_ITS | Encounter Summary ---
Author Organization [facility] [employer] Address [address] [place] [address] 7 [place] [address] Care Team Providers Care Dry Wall Installations Mechanic Name Role Phone Celia Butler MD Primary Care Provider [phone] Reason for Referral * Imaging (Routine) - Closed Specialty Diagnoses / Procedures Referred By Contac t Referred To Contact Radiology Diagnoses Neck pain Procedures MR Cervical Spine w/o Contrast Celia Butler MD [address] [place] [address] Phone: tel: fax: [facility] Referral ID Status Reason Start Date Expiration Date Visits Re quested Visits Authorized [id number] Closed 10/05/2023 10/04/2024 1 1 Encounter Details Date Type Department Care Team ([facility] st Contact Info) Description 09/29/2023 Orders Only [facility] PEDS [address] [place] [address] Celia Butler MD [address] [place] [address] Other specified hypothyroidism (Primary Dx); Mixed hyperlipidemia; Neck pain Social History Tobacco Use Types Packs/Day Years [...] 04/28/2025 10:00 AM EDT Clinical Support [facility] PEDS [address] [place] [phone] Scheduled Orders Name Type Priority Associated Diagnoses Orde r Schedule MR Cervical Spine w/o Contrast Imaging Routine Neck pain Expected: 10/05/2023, Expires: 10/04/2024 documented as of this encounter Procedures Procedure Name Priority Date/Time Associated Diagnosis Comments TSH W/REFLEX TO FT4 Routine 03/22/2024 12:52 PM EDT Other specified hypothyroidism documented in this encounter Results * (ABNORMAL) TSH W/Reflex to FT4 (03/22/2024 12:52 PM EDT) TSH reflex Free T4 0.06(L) 0.32 - 4.0 uIU/mL [facility] Blood Venous blood specimen / Unknown 03/22/2024 12:52 PM EDT 03/22/2024 2:23 PM EDT Celia Butler MD LAB BLOOD ORDERABLES Final Result [facility] [address] [place] [address] [phone] documented in this encounter Visit Diagnoses Diagnosis Other specified hypothyroidism- Primary Mixed hyperlipidemia Neck pain Cervicalgia documented in this encounter Care Teams Dry Wall Installations Mechanic Relationship Specialty Start Date End Date Celia Butler MD [address] [place] [phone] PCP - General Internal Medicine 05/05/15 documented as of this encounter
--- OUTSIDE RECORDS SUMMARY | 2025-04-21 13:48 | XMS_ITS | Encounter Summary ---
Author Organization [employer] Address [address] [facility] 7t [place] [address] Care Team Providers Care Outreach Worker Name Role Phone Celia Butler MD Primary Care Provider [phone] Encounter Details Date Type Department Care Team ([facility] st Contact Info) Description 03/22/2024 Orders Only [facility] MED & PEDS [address] [place], [place] [phone] Celia Butler MD [address] [place] [address] Other specified hypothyroidism (Primary Dx); Chronic pain [...] Description 04/28/2025 10:00 AM EDT Clinical Support [facility] MED & [facility]ED[facility] [address] [place] [address] documented as of this encounter Procedures Procedure Name Priority Date/Time Associated Diagnosis Comments T4, FREE Routine 03/22/2024 12:52 PM EDT Other specified hypothyroidism documented in this encounter Results * T4, Free (03/22/2024 12:52 PM EDT) Free T4 (Free Thyroxine) 1.11 0.71 - 1.85 ng/dL [facility] 03/22/2024 12:5 2 PM EDT 03/22/2024 2:23 PM EDT us Celia Butler MD LAB BLOOD ORDERABLES Final Result [facility] [address] [place] [address] [phone] documented in this encounter Visit Diagnoses Diagnosis Other specified hypothyroidism- Primary Chronic pain syndrome Primary osteoarthritis, other specified site Primary osteoarthritis of both knees documented in this encounter Additional Health Concerns Assessment Noted Time PHQ-9 Depression Total Score: 7 03/21/20 24 3:53 PM EDT documented as of this encounter Care Teams Outreach Worker Relationship Specialty Start Date End Date Celia Butler MD [address] [place] [address] PCP - General Internal Medicine 05/05/15 documented as of this encounter
--- OUTSIDE RECORDS SUMMARY | 2025-04-21 13:48 | XMS_ITS | Encounter Summary ---
Author Organization [facility] Address [address] [address] Phone Care Team Providers Care Associate Professor Of Geology Name Role Phone Raissa Medina DO Primary Care Provider [phone] Celia Butler MD Primary Care Pr ovider Eitan Rowe MD Unavailable [phone] Unknown, Unknown Primary Care Provider Celia Panda MD Primary Care Pr ovider Encounter Details Date Type Department Care Team (Late st Contact Info) Description 02/04/2015 Transcribe Orders [facility] [address] [address] Pelon Wilcox [email or web address] Social History Tobacco Use Types Packs/Day Years Used Date Smoking Tobacco: Smoker, Current Status Unknown Comments Unknown Sex and Gender Information Value [...] Assessment Author No 01/03/2015 11:14 AM Ameena Lzaaro MD * Patient has serious difficulty walking [...] on filedocumented in this encounter Care Teams Associate Professor Of Geology Relationship Specialty Start Date End Date Raissa Medina DO [address] [place] [address] PCP - General Family Medicine 01/05/15 08/16/16 Celia Butler MD [address] [address] PCP - General Internal Medicine 08/17/16 06/04/17 Unknown, MD Pablo [address] [place] [address] PCP - General 06/05/17 08/20/18 Celia Butler MD [address] [address] PCP - General Internal Medicine 08/21/18 Eitan Rowe MD [address] [place] [address] Claims Counsel Cardiology 08/17/16 documented as of this encounter Additional Source Comments The information contained in this document represents components of the legal health record. It is not the complete legal health record.[facility]
--- OUTSIDE RECORDS SUMMARY | 2025-04-21 13:48 | XMS_ITS | Encounter Summary ---
Author Organization [facility] Address [address] [facility] 7t h Floor [address] Care Team Providers Care Digital Asset Manager Name Role Phone Celia Butler MD Primary Care Provider [phone] Encounter Details Date Type Department Care Team ([facility] st Contact Info) Description 07/03/2024 Orders Only [facility] MED [facility]EDS [address] [place], [place] [phone] Celia Butler MD [address] [place] [address] Type 2 diabetes mellitus without complications (CMS/HCC) Social History Tobacco Use Types Packs/Day Years [...] housing situation today? I have merrillcristina lackey 10/18/[address] you [...] Description 04/28/2025 10:00 AM EDT Clinical Support [facility] MED & PEDS [address] [place] [address] documented as of this encounter Visit Diagnoses Diagnosis Type 2 diabetes mellitus without complications (CMS/HCC) documented in this encounter Additional Health Concerns Assessment Noted Time PHQ-9 Depression Total Score: 7 03/21/20 24 3:53 PM EDT documented as of this encounter Care Teams Digital Asset Manager Relationship Specialty Start Date End Date Celia Butler MD [address] [place] [address] PCP - General Internal Medicine 05/05/15 documented as of this encounter
--- OUTSIDE RECORDS SUMMARY | 2025-04-21 13:48 | XMS_ITS | Encounter Summary ---
Author Organization [facility] Address [address] [place] [address] Phone Care Team Providers Care Sewer Name Role Phone Eitan Rowe MD Unavailable [phone] Celia Butler MD Primary Care Pr ovider Encounter Details Date Type Department Care Team (Late st Contact Info) Description 09/04/2018 Procedure Pass [facility] Periop 1st floor [address] [place] [address] Social History Tobacco Use Types Packs/Day Years [...] on filedocumented in this encounter Care Teams Sewer Relationship Specialty Start Date End Date Celia Butler MD [address] [place] [address] PCP - General Internal Medicine 08/21/18 Eitan Rowe MD [address] [place] [address] Recycling Center Operator Cardiology 08/17/16 documented as of this encounter Additional Source Comments The information contained in this document represents components of the legal health record. It is not the complete legal health record.[facility]
--- OUTSIDE RECORDS SUMMARY | 2025-04-21 13:48 | XMS_ITS | Encounter Summary ---
Author Organization [facility] Address [address] [place] [address] Phone Care Team Providers Care Forensics Team Director Name Role Phone Celia Butler MD Primary Care Pr ovider LotEitan ang MD Unavailable [phone] Unknown, Unknown Primary Care Provider Celia Panda MD Primary Care Pr ovider Encounter Details Date Type Department Care Team (Late st Contact Info) Description 09/13/2016 Procedure Pass [facility] PERIOPERATIVE DEPT [address] [place] [id number] Social History Tobacco Use Types Packs/Day Years [...] on filedocumented in this encounter Care Teams Forensics Team Director Relationship Specialty Start Date End Date Celia Butler MD [address] [address] PCP - General Internal Medicine 08/17/16 06/04/17 Unknown, MD Pablo [address] [place] [address] PCP - General 06/05/17 08/20/18 Celia Butler MD [address] [address] PCP - General Internal Medicine 08/21/18 Eitan Rowe MD [address] [place] [address] Recyclable Materials Sorter Cardiology 08/17/16 documented as of this encounter Additional Source Comments The information contained in this document represents components of the legal health record. It is not the complete legal health record.[facility]
--- OUTSIDE RECORDS SUMMARY | 2025-04-21 13:48 | XMS_ITS | Encounter Summary ---
Author Organization [facility] Address [address] [place] [address] Phone Care Team Providers Care Crawler Tractor Operator Name Role Phone Eitan Rowe MD Unavailable [phone] Unknown, Unknown Primary Care Provider Celia Panda MD Primary Care Pr ovider Encounter Details Date Type Department Care Team (Late st Contact Info) Description 06/26/2017 Procedure Pass [facility] [address] [place] [address] Social History Tobacco Use Types Packs/Day Years [...] on filedocumented in this encounter Care Teams Crawler Tractor Operator Relationship Specialty Start Date End Date Unknown, Unknown, [address] [place] [address] PCP - General 06/05/17 08/20/18 Celia Butler MD [address] [place] [address] PCP - General Internal Medicine 08/21/18 Eitan Rowe MD [address] [place] [address] Nut Threader Cardiology 08/17/16 documented as of this encounter Additional Source Comments The information contained in this document represents components of the legal health record. It is not the complete legal health record.[facility]
--- OUTSIDE RECORDS SUMMARY | 2025-04-21 13:48 | XMS_ITS | Encounter Summary ---
Author Organization [facility] Address [address] [place] [address] Phone Care Team Providers Care Linux Developer Name Role Phone Eitan Rowe MD Unavailable [phone] Celia Butler MD Primary Care Pr ovider Encounter Details Date Type Department Care Team (Late st Contact Info) Description 03/18/2019 Procedure Pass [facility] [address] [place] [address] Social History Tobacco Use Types Packs/Day Years [...] on filedocumented in this encounter Care Teams Linux Developer Relationship Specialty Start Date End Date Celia Butler MD [address] [place] [address] PCP - General Internal Medicine 08/21/18 Eitan Rowe MD [address] [place] [address] Sales And Customer Relations Rep Cardiology 08/17/16 documented as of this encounter Additional Source Comments The information contained in this document represents components of the legal health record. It is not the complete legal health record.[facility]
--- OUTSIDE RECORDS SUMMARY | 2025-04-21 13:48 | XMS_ITS | Clinical Summary ---
Author Organization [place] [employer] Address [address] [facility] [address] [place] [address] Care Team Providers Care Inseminator Name Role Phone Celia Butler MD Primary Care Provider [phone]- [phone] Allergies Active Allergy Reactions Criticality Noted Date Comments Acetaminophen 05/05/2015 Other reaction(s): drop in body temp Other reaction(s): drop in body temp Amlodipine 08/24/2016 Other reaction(s): Muscle pain Other reaction(s): muscle pain, generalized pain, swelling Muscle aches and pains, couldn't move Other reaction(s): muscle pain, generalized pain, swelling Other reaction(s): Muscle pain Sodium Hypochlorite Itching Medium 08/21/2018 Medications aspirin 81 MG EC tablet Take 1 tablet by mouth. 015 Active cholecalciferol (Vitamin D-3) 25 MCG (1000 UT) capsule Take 1 capsule by mouth. 019 Active oxybutynin XL (Ditropan-XL) 5 MG 24 hr tablet Take 1 tablet by mouth 1 (one) time each day. 022 Active Blood Glucose Monitoring Suppl (FreeStyle glucose monitoring) kit 1 each if needed. Active Elastic Bandages & Supports (Medical Compression Socks) [facility] Active Blood Pressure Monitor kitIndications:P rimary hypertension To check the BP daily 1 kit 023 Active doxepin (SINEquan) 25 MG capsuleIndicatio ns:Rash Take 1 capsule (25 mg) by mouth at bedtime. 30 capsule 023 Active permethrin (Elimite) 5 % creamIndications :Rash apply to skin from hairline to toes and wash off 8-10 hours later, repeat in 1 week 180 g 023 Active cetirizine (ZyrTEC) 10 MG tabletIndication s:Rash Take 1 tablet (10 mg) by mouth in the morning. 30 tablet 023 Active triamcinolone (Kenalog) 0.5 % ointmentIndicati ons:Rash Apply topically 2 times daily. 60 g 023 Active albuterol 108 (90 Base) MCG/ACT inhalerIndicatio ns:Bronchospasm Inhale 2 puffs every 6 (six) hours if needed for wheezing. 18 g 023 Active baclofen (Lioresal) 10 MG tabletIndication s:Muscle spasm Take 1 tablet (10 mg) by mouth 3 times daily. 40 tablet 023 Active Alcohol Swabs (B-D SINGLE USE SWABS REGULAR) padsIndications: Type 2 diabetes mellitus without complication, without long-term current use of insulin ([facility]) USE TO CLEAN SKIN AREA OF BLOOD SUGAR TESTING SITE ONCE DAILY 100 each 11 024 Active tiZANidine (Zanaflex) 2 MG tabletIndication s:Neck pain,Muscle spasm Take 1 tablet (2 mg) by mouth at bedtime. 30 tablet 024 Active metoprolol succinate XL (Toprol-XL) 25 MG 24 hr tablet Take 1/2 (one-half) tablet by mouth twice daily 20 tablet 024 Active metFORMIN (Glucophage) 850 MG tablet TAKE 1 TABLET BY MOUTH TWICE DAILY WITH BREAKFAST AND SUPPER 180 tablet 1 024 Active losartan (Cozaar) 100 MG tabletIndication s:Primary hypertension Take 1 tablet (100 mg) by mouth Once per day. 30 tablet 11 024 2024 Active lidocaine (Lidoderm) 5 % patchIndications :Mid back pain Apply 1 patch topically Once per day. Remove & discard patch within 12 hours or as directed by MD. 30 patch 11 Active glucose blood (FREESTYLE LITE) test stripIndications :Type 2 diabetes mellitus without complications ([facility]) To check the blood sugar once a day 100 strip 11 Active glucose blood test stripIndications :Type 2 diabetes mellitus without complications ([facility]) To use once a day 100 each 12 024 2024 Active FreeStyle lancetsIndicatio ns:Type 2 diabetes mellitus without complications ([facility]) 1 each by Other route Once daily. 100 each 11 024 Active azithromycin (Zithromax) 250 MG tabletIndication s:Cough, unspecified type Take 2 tablets oral the first day and then 1 tablet oral daily for 4 days (total 5 days) 6 tablet Active guaiFENesin (Mucinex) 600 MG 12 hr tabletIndication s:Cough, unspecified type Take 2 tablets (1,200 mg) by mouth 2 times daily. Do not crush, chew, or split. 120 tablet 025 2025 Active metoprolol succinate XL (Toprol-XL) 50 MG 24 hr tabletIndication s:Primary hypertension TAKE 1 TABLET BY MOUTH EVERY MORNING. DO NOT BREAK, CRUSH, DISSOLVE OR CHEW 90 tablet 1 Active levothyroxine (Synthroid, Levoxyl) 112 MCG tabletIndication s:Other specified hypothyroidism TAKE 1 TABLET BY MOUTH EVERY MORNING BEFORE BREAKFAST 90 tablet 1 025 Active DULoxetine (Cymbalta) [address] capsuleIndicatio ns:Chronic pain syndrome TAKE ONE CAPSULE BY MOUTH EVERY DAY 30 capsule 3 025 Active rosuvastatin (Crestor) 40 MG tabletIndication s:Mixed hyperlipidemia TAKE 1 TABLET BY MOUTH EVERY DAY 90 tablet 025 Active losartan (Cozaar) 25 MG tabletIndication s:Primary hypertension Take 1 tablet (25 mg) by mouth Once per day. 30 tablet 025 2025 Active lidocaine-priloc justin (Emla) 2.5-2.5 % creamIndications :Chronic pain syndrome,Primary osteoarthritis, other specified site,Primary osteoarthritis of both knees APPLY TO THE AFFECTED AREA(S) ONCE DAILY 90 g 2 025 Active Trulicity 0.75 MG/0.5ML solution auto-injectorInd ications:Type 2 diabetes mellitus with other specified complication, without long-term current use of insulin ([facility]) INJECT ONE PEN (=0.75MG) SUBCUTANEOUSLY ONCE A WEEK DIRECTED 2 mL 5 025 Active methocarbamol (Robaxin) 750 MG tabletIndication s:Muscle spasm Take 1 tablet (750 mg) by mouth 4 times daily for 10 days. 40 tablet 023 2023 Discontinued(T herapy completed) Dulaglutide 0.75 MG/0.5ML solution auto-injectorInd ications:Type 2 diabetes mellitus with other specified complication, without long-term current use of insulin ([facility]) Inject 0.75 mg under the skin 1 (one) time per week. INJECT ONE PEN (=0.75MG) SUBCUTANEOUSLY ONCE A WEEK DIRECTED 2 mL 5 024 2024 Discontinued Active Problems Problem Noted Date Diagnosed Date Rash 04/24/2023 Overview (04/24/2023): Various areas of excoriations, concern for scabies. Will send permethrin, triamcinolone, cetirizine and doxepin, if no improvement strongly recommedned f/up with PCP Cough 08/15/2022 Assessment & Plan (08/15/2022 3:58 PM EST): Continue Zpack and send to testing if symptoms persist will begin on steroid. Tobacco user 07/05/2022 Type 2 diabetes mellitus 09/12/2019 Back pain 09/04/2018 MD (myocardial infarction) 08/21/2018 History of coronary artery bypass graft 08/21/19 19 Osteoarthritis 11/09/2017 Primary localized osteoarthrosis of pelvic regio n 02/04/2015 Hypertensive disorder 05/16/2013 Radiculitis 05/14/2013 Hyperlipidemia 08/05/2005 Hypothyroidism 07/23/2005 Chronic pain syndrome 08/26/2002 Encounters Date Type Department Care Team Description 04/20/2025 Refill [facility] [address] [place] [address] Celia Butler MD Type 2 diabetes mellitus with other specified complication, without long-term current use of insulin ([facility]) 03/28/2025 9:45 AM EDT Office Visit [facility] [address] [place] [address] Shahrzad Giang MD Acute right flank pain (Primary Dx); Type 2 diabetes mellitus with other specified complication, without long-term current use of insulin ([facility]); Mixed hyperlipidemia; Primary hypertension; Chronic neck pain with osteoarthritis determined by x-ray 03/28/2025 Travel 02/11/2025 Telephone [facility] [address] [place] [address] Celia Butler MD Nurse Triage 02/05/2025 Results Follow-Up [facility] [address] [place] [address] Fabi Oscar, SOB[place] CT Head w/o Contrast from Last 3 Months Immunizations Immunization Administration Dates Next Due Hep B, adult 05/03/2004 Moderna Covid-19 Vaccine 12+ 11/06/2020,10/10/19 21 TD (adult), 2 Lf tetanus tox oid, preservative free, adsorbed 05/03/2004 Td (adult), unspecified 04/30/2004 Tdap 06/18/2015 Social History Tobacco Use Types Packs/Day Years Used Date Smoking Tobacco: Former Cigarettes Q uit: 08/07/2016 Passive Smoke Exposure: Never Smokeless Tobacco: Never Tobacco Cessation:Counseling Given: Not Answered Alcohol Use Standard Drinks/Week Comments Never 0 [...] Orientation Straight 06/06/2022 10 :28 AM EDT Last Filed Vital Signs Vital Sign Reading Time Taken Comments Blood Pressure 161/80 12/18/2024 9:15 AM EDT Pulse 60 03/28/2025 9:51 AM EDT Temperature 36.2 C (97.2 F) 03/28/2025 9:51 AM EDT Respiratory Rate 16 03/28/2025 9:51 AM EDT Oxygen Saturation 96% 12/18/2024 9:15 AM EDT Inhaled Oxygen Concentration - - Weight 66.2 kg (146 lb) 03/28/2025 9:51 AM EDT Height 158 cm (5' 2.21 ) 12/18/2024 9:15 AM EDT Body Mass Index 26.52 12/18/2024 9:15 AM EDT Plan of Treatment Upcoming Encounters Date Type Department Care Team (Late st Contact Info) Description 04/28/2025 10:00 AM EDT Clinical Support [facility] [address] [place] [address] Health Maintenance Due Date Last Done Comments CT Colonography 1957 FIT DNA/Cologuard 1957 FIT 1957 FOBT 1955 Sigmoidoscopy 1955 Eye Exam 1967 Alcohol/Substance Use Screening 1969 Pneumococcal Vaccine: 50+ Years (1 of 2 - PCV) 1976 Hepatitis B Vaccines (2 of 3 - 19+ 3-dose series) 05/31/2004 05/03/2004 Zoster Vaccines (1 of 2) 2007 RSV Patients and Patients Aged 60 years or older (1 - Risk 60-74 years 1-dose series) 2017 Colonoscopy 07/05/2022 07/05/2017 Colorectal Cancer Screening 07/05/2022 SDOH Screening 10/17/2024 10/18/2023 Mammogram 03/13/2025 03/13/2023, 02/05, 02/27/2018, Additional history exists Depression Screening 03/21/2025 03/21/2024, 03/21/20 Diabetes: Foot Exam 03/21/2025 03/21/2024 Lipid Panel 03/22/2025 03/22/2024, 09/08, 05/18/2022 COVID-19 Vaccine ( season) 2025 11/06/2020, 10/09/2020 Influenza Vaccine (#1) 2025 DTaP/Tdap/Td Vaccines (2 - Td or Tdap) 06/18/2025 06/18/2015, 05/03/2004, 04/30/2004 Diabetes: Hemoglobin A1C 06/20/2025 025, 03/21/2024, 09/21/2023, Additional history exists Diabetes: Urine Protein Screening 03/28/2026 03/28/2025, 05/18/2022 Tobacco Screening 03/28/2026 03/28/2025 HPV/Cotest 12/09/2027 12/08/2022 Pap Smear 12/09/2027 12/08/2022 Hepatitis C Screening Completed 03/22/2024 HIB Vaccines Aged Out No longer eligi ble based on patient's age to complete this topic HPV Vaccines Aged Out No longer eligi ble based on patient's age to complete this topic Hepatitis A Vaccines Aged Out No long er eligible based on patient's age to complete this topic IPV Vaccines Aged Out No longer eligi ble based on patient's age to complete this topic Meningococcal B Vaccine Aged Out No l onger eligible based on patient's age to complete this topic Meningococcal Vaccine Aged Out No magno sloane eligible based on patient's age to complete this topic RSV under 20 months Aged Out No longe r eligible based on patient's age to complete this topic Rotavirus Vaccines Aged Out No longer eligible based on patient's age to complete this topic Procedures Procedure Name Priority Date/Time Associated Diagnosis Comments ALBUMIN, RANDOM URINE W/CREATININE Routine 03/28/2025 11:20 AM EDT Type 2 diabetes mellitus with other specified complication, without long-term current use of insulin (CMS/HCC) VITAMIN B12/FOLATE, SERUM PANEL Routine 03/28/2025 11:15 AM EDT Memory disturbance BASIC METABOLIC PANEL Routine 03/28/2025 11:15 AM EDT Memory disturbance TSH W/REFLEX TO FT4 Routine 03/28/2025 1 1:15 AM EDT Memory disturbance POCT URINALYSIS DIPSTICK Routine 03/28/2025 10:16 AM EDT Acute right flank pain CT HEAD WO CONTRAST Routine 02/05/2025 8 :36 AM EDT Nonintractable headache, unspecified chronicity pattern, unspecified headache type Memory disturbance POCT GLYCATED HEMOGLOBIN, TOTAL Routine 12/18/2024 2:46 PM EDT Type 2 diabetes mellitus with other specified complication, without long-term current use of insulin (CMS/HCC) HEPATITIS C AB W/REFL TO HCV RNA, QN, PCR Routine 03/22/2024 12:52 PM EDT Mixed hyperlipidemia Primary hypertension Type 2 diabetes mellitus with other specified complication, without long-term current use of insulin (CMS/HCC) LIPID PANEL, STANDARD Routine 03/22/2024 12:52 PM EDT Mixed hyperlipidemia MAMMOGRAPHY Routine 03/13/2023 PAP/HPV Routine 12/08/2022 COLONOSCOPY Routine 07/05/2017 from Last 3 Months or Most Recently Relevant to Health Maintenance Results * Albumin, Random Urine W/Creatinine (03/28/2025 11:20 AM EDT) Creatinine, Urine 99.14 mg/dL [facility] Microalbumin Urine 6.0 mg/L [facility] Microalbum Creatinine Ratio Ur 6.0 <30 ug/mg cr [facility] Comment:Albumin/Creatinine R atio Reference Ranges: Normal: < 30 ug/mg creatinine Microalbuminuria: 30 - 300 ug/mg creatinineClinical Albuminuria: > 300 ug/mg creatinine Urine (Urine, Random) 03/28/2025 11:20 AM EDT 03/28/2025 3:59 PM EDT us Celia Butler MD LAB URINE ORDERABLES Final Result Performing Organization Address [facility] Co de Phone Number [facility] [address] [place] [phone] * Vitamin B12/Folate, Serum Panel (03/28/2025 11:15 AM EDT) Vitamin B12 297 200 - 900 pg/mL [facility] Comment:NORMAL 200-900 PG/ML INDETERMINATE 160-199 PG/ML DEFICIENT < 160 PG/ML Folate 7.4 > or = 4.0 ng/mL [facility] Comment:Reference Values:> o r = 4.0 ng/mL< 4.0 ng/mL suggests folate deficiency Methotrexate, aminopterin and folinic acid(leucovorin) are chemotherapeutic agents whose molecularstructures are similar to folate; therefore, the Architectfolate assay cannot be used for patients using these drugs. Blood Venous blood specimen / Unknown 03/28/2025 11:15 AM EDT 03/28/2025 3:42 PM EDT us Celia Butler MD LAB BLOOD ORDERABLES Final Result Performing Organization Address [facility] Co de Phone Number [facility] [address] [place] [phone] * TSH W/Reflex to FT4 (03/28/2025 11:15 AM EDT) TSH reflex Free T4 0.61 0.32 - 4.0 uIU/mL [facility] Blood Venous blood specimen / Unknown 03/28/2025 11:15 AM EDT 03/28/2025 3:42 PM EDT us Celia Butler MD LAB BLOOD ORDERABLES Final Result Performing Organization Address City/[facility]/ZIP Co de Phone Number [facility] [address] [place] [phone] * Basic Metabolic Panel (03/28/2025 11:15 AM EDT) Pathologist [facility] Sodium 138 135 - 145 mmol/L [facility] Potassium 4.2 3.3 - 5.1 mmol/L [facility] Chloride 105 96 - 108 mmol/L [facility] Carbon Dioxide 24 22 - 29 mmol/L [facility] Anion Gap 13 12 - 20 [facility] Urea Nitrogen (BUN) 15 9 - 16 mg/dL [facility] Creatinine, Serum 0.58 0.5 - 1.4 mg/dL [facility] Estimated Glomerular Filt Rate >60 [facility] Comment:Chronic Kidney Disea se: Estimated GFR < 60 mL/min/[id number] Kidney Disease: Estimated GFR < 15 mL/min/1.73m2 Glucose 97 60 - 115 mg/dL [facility] Calcium 9.4 8.4 - 10.2 mg/dL [facility] Blood Venous blood specimen / Unknown 03/28/2025 11:15 AM EDT 03/28/2025 3:42 PM EDT us Celia Butler MD LAB BLOOD ORDERABLES Final Result Performing Organization Address City/[facility]/ZIP Co de Phone Number [facility] [address] [place] [phone] * POCT Urinalysis (03/28/2025 10:16 AM EDT) Color, UA Yellow Clarity, UA Clear Glucose, UA Negative Bilirubin, UA Negative Ketones, UA Negative Spec Grav, UA 1.025 Blood, UA Negative Negative, None Detected pH, UA 5.5 Protein, UA Negative Urobilinogen, UA 0.2 Leukocytes, UA Negative Negative, Rare, Trace Nitrite, UA Negative Negative, None Detected Appearance, UA clear QC Media Lot # [id number] Lot# Expiration Date Urine 03/28/2025 10:1 6 AM EDT Shahrzad Giang MD POINT OF CARE TEST ENTER/EDIT ORDERABLES Final Result * CT Head w/o Contrast (02/05/2025 8:36 AM EDT) Anatomical Region Laterality Modality Head, Neck Computed Tomogra phy 02/05/2025 8:36 AM EDT Narrative 02/05/2025 1:10 PM EDT [place] [address] CT Scan Report Signed Patient: Emy Chavez MR#: [id number] : 1955 Acct:[id number] Age/Sex: 69 / F ADM Date: 02/05/25 Loc: HO.CT Attending Dr: Celia Butler MD Ordering Physician: Celia Butler MD Date of Service: 02/05/25 Procedure(s): CT head/brain wo IV con Accession Number(s): [id number] cc: Celia Butler MD Report Number: [id number]: Total DLP = 779.00 mGy-cm EXAMINATION: CT HEAD WITHOUT CONTRAST CLINICAL INFORMATION: History of a fall with memory disturbances and headache COMPARISON: None available. TECHNIQUE: Contiguous axial imaging was performed from the skull base to vertex without intravenous administration of contrast. This CT examination was performed using dose optimization techniques as appropriate, variously including the following: *Automated exposure control *Adjustment of mA and/or kV according to patient size (this includes techniques or standardized protocols for targeted exams where dose is matched to indication/reason for exam; i.e. extremities or head) *Use of iterative reconstruction technique DLP: 779 mGy-cm FINDINGS: No acute intracranial hemorrhage, mass effect, midline shift, hydrocephalus or herniation. Dick-white matter differentiation is normal. Posterior cranial fossa contents demonstrated no gross mass effect or intracranial hemorrhage. Sellar/suprasellar region demonstrated no gross masses. Craniocervical junction demonstrates normal position of the cerebellar tonsils. Calcified plaques in the cavernous supracavernous segments both ICAs. Poor pneumatization frontal sinuses. No air-fluid levels in the included paranasal sinuses. Tympanic cavities and mastoid antrums are aerated. Poor pneumatization mastoid air cells. CT/CT head/brain wo IV con IMPRESSION: No acute intracranial hemorrhage or gross abnormality by CT. Atherosclerosis disease. Electronically signed by: Roger Arteaga MD 02/05/2025 01:08 PM EDT RP Dictated By: Roger Travis MD Signed By: <Electronically signed by Roger Mcclain MD in OV> 02/05/25 1308 DD/ 0836 TD/TT: 02/05/25 0845 Professional Employer Consultant: Procedure Note Donotuseinterpreter, Image - 02/05/[address] [place] [address] [address] Scan Report Signed Patient: Emy Chavez LMR#: [id number] : 8Acct:[id number] Age/Sex: 69 / FADM Date: 02/05/25 Loc: HO.CT Attending Dr: Celia Butler MD Ordering Physician: Celia Butler MD Date of Service: 02/05/25 Procedure(s): CT head/brain wo IV con Accession Number(s): [id number] cc: Celia Butler MD Report Number: [id number]: Total DLP = 779.00 mGy-cm EXAMINATION: CT HEAD WITHOUT CONTRAST CLINICAL INFORMATION: History of a fall with memory disturbances and headache COMPARISON: None available. TECHNIQUE: Contiguous axial imaging was performed from the skull base to vertex without intravenous administration of contrast. This CT examination was performed using dose optimization techniques as appropriate, variously including the following: *Automated exposure control *Adjustment of mA and/or kV according to patient size (this includes techniques or standardized protocols for targeted exams where dose is matched to indication/reason for exam; i.e. extremities or head) *Use of iterative reconstruction technique DLP: 779 mGy-cm FINDINGS: No acute intracranial hemorrhage, mass effect, midline shift, hydrocephalus or herniation. Dick-white matter differentiation is normal. Posterior cranial fossa contents demonstrated no gross mass effect or intracranial hemorrhage. Sellar/suprasellar region demonstrated no gross masses. Craniocervical junction demonstrates normal position of the cerebellar tonsils. Calcified plaques in the cavernous supracavernous segments both ICAs. Poor pneumatization frontal sinuses. No air-fluid levels in the included paranasal sinuses. Tympanic cavities and mastoid antrums are aerated. Poor pneumatization mastoid air cells. CT/CT head/brain wo IV con IMPRESSION: No acute intracranial hemorrhage or gross abnormality by CT. Atherosclerosis disease. Electronically signed by: Roger Arteaga MD 02/05/2025 01:08 PM EDT RP Dictated By: Roger Travis MD Signed By: <Electronically signed by Roger Mcclain MDin OV> 02/05/25 1308 DD/ 0836 TD/TT: 02/05/25 0845 Professional Employer Consultant: Celia Butler MD IMG CT PROCEDURES Final Res ult * POCT HGB A1C (12/18/2024 2:46 PM EDT) Hemoglobin A1C 5.6 4.0 - 6.0 % QC Media Lot # [id number] Lot# Expiration Date Blood 12/18/2024 2:46 PM EDT Celia Butler MD POINT OF CARE TEST ENTER/ED IT ORDERABLES Final Result * Hepatitis C Antibody with Reflex to HCV, RNA, Quantitative, Real-Time PCR (03/22/2024 12:52 PM EDT) Hepatitis C Antibody Nonreactive Nonreactive [facility] Comment:Antibodies to HCV no t detected; does not exclude early acuteHCV infection. Blood Venous blood specimen / Unknown 03/22/2024 12:52 PM EDT 03/22/2024 2:21 PM EDT us Celia Butler MD LAB BLOOD ORDERABLES Final Result Performing Organization Address City/[facility] Co de Phone Number [facility] [address] [place] [address] [phone] * (ABNORMAL) Lipid Panel, Standard (03/22/2024 12:52 PM EDT) Triglycerides 154(H) <150 mg/dL [facility] Comment:Desirable Triglyceri de: less than 150 mg/dLBorderline High Triglyceride 150-199 mg/dLHigh Triglyceride: 200-499 mg/dLVery High Triglyceride: greater than or equal to 5OO mg/dL Cholesterol 128 <200 mg/dL [facility] Comment:Desirable Cholestero l: less than 200 mg/dLBorderline High Cholesterol: 200-239 mg/dLHigh Cholesterol: greater than 239 mg/dL LDL Cholesterol Calculated 64 <100 mg/dL [facility] Comment:Desirable LDL: less than 100 mg/dLNear Optimal/Above Optimal LDL: 110- 129 mg/dLBorderline High LDL: 130-159 mg/dLHigh LDL: 160-189 mg/dLVery High LDL: greater than or equal to 190 mg/dL HDL Cholesterol 34(L) >40 mg/dL [facility] Comment:Desirable HDL: great er than 40 mg/dL Note: This HDL assay may give artificially low results in patients with liver disease. Blood Venous blood specimen / Unknown 03/22/2024 12:52 PM EDT 03/22/2024 2:23 PM EDT us Celia Butler MD LAB BLOOD ORDERABLES Final Result [facility] [address] [place] [phone] [phone] * Mammography (03/13/2023) Mammogram Bi-rads 1 Anatomical Region Laterality Modality Other Historical Provider HEALTH MAINTENANCE Final Result * Pap Smear (12/08/2022) Pap Negative for intraephithelial lesion or malignancy Negative for intraephithelial lesion or malignancy, Other HPV Undetected Undetected, Indeterminate, Quantitative, Not Detected Historical Provider HEALTH MAINTENANCE Final Result * Colonoscopy (07/05/2017) Colonoscopy Normal Normal Narrative [facility] - 07/05/2017 Recommended 5 year follow up [facility] Provider HEALTH MAINTENANCE Final Result from Last 3 Months or Most Recently Relevant to Health Maintenance Insurance [place] [address] [place] [phone] [facility] Care Teams Inseminator Relationship Specialty Start Date End Date Celia Butler MD [address] [place] [phone] PCP - General Internal Medicine 05/05/15
--- OUTSIDE RECORDS SUMMARY | 2025-04-21 13:48 | XMS_ITS | Encounter Summary ---
Author Organization [employer] Address [address] [facility] [address] [place] [address] Care Team Providers Care Material Assembler Name Role Phone Celia Butler MD Primary Care Provider [phone] Encounter Details Date Type Department Care Team ([facility] st Contact Info) Description 07/21/2023 Orders Only [facility] [address] [place], [place] [phone] Celia Butler MD [address] [place] [address] Muscle spasm (Primary Dx) Social History Tobacco [...] Description 04/28/2025 10:00 AM EDT Clinical Support [facility] [address] [place] [address] documented as of this encounter Visit Diagnoses Diagnosis Muscle spasm- Primary Spasm of muscle documented in this encounter Care Teams Material Assembler Relationship Specialty Start Date End Date Celia Butler MD [address] [place] [address] PCP - General Internal Medicine 05/05/15 documented as of this encounter
--- OUTSIDE RECORDS SUMMARY | 2025-04-21 13:49 | XMS_ITS | Encounter Summary ---
Author Organization [employer] Address [address] [facility] [address] [place] [address] Care Team Providers Care Sleeping Car Porter Name Role Phone Celia Butler MD Primary Care Provider [phone] Reason for Visit * Reason Comments Med Refill Encounter Details Date Type Department Care Team ([facility] Contact Info) Description 01/28/2023 Refill [facility] [address] [place] [address] Celia Butler MD [address] [place] [address] Mixed hyperlipidemia Social History Tobacco Use Types Packs/Day Years Used Date Smoking Tobacco: Former Cigarettes Q uit: 08/07/2016 Passive Smoke Exposure: Never Smokeless Tobacco: Never Alcohol Use Standard Drinks/Week Comments Never 0 (1 standard drink = 0.6 oz pur e alcohol) Depression Answer Date Recorded Patient Health Questionnaire-2 Score 0 07/11/2022 Comments Unknown Sex and Gender Information Value Date Recorded Sex Assigned at Female 06/06/2022 10:28 AM EDT Legal Sex Female 10:28 AM EDT Gender Identity Female 06/06/2022 10:28 AM EDT Sexual Orientation Straight 06/06/2022 10 :28 AM EDT COVID-19 Exposure Response Date Recorded In the last 10 days, have yo u been in contact with someone who was confirmed or suspected to have Coronavirus/COVID-19? No / Unsure 12/29/2022 1:53 PM EDT documented as of this encounter Plan of Treatment Upcoming Encounters Date Type Department Care Team ([facility] Contact Info) Description 04/28/2025 10:00 AM EDT Clinical Support [facility] [address] [place] [address] documented as of this encounter Visit Diagnoses Diagnosis Mixed hyperlipidemia documented in this encounter Care Teams Sleeping Car Porter Relationship Specialty Start Date End Date Celia Butler MD [address] [place] [address] PCP - General Internal Medicine 05/05/15 documented as of this encounter
--- OUTSIDE RECORDS SUMMARY | 2025-04-21 13:49 | XMS_ITS | Encounter Summary ---
Author Organization [employer] [facility] [employer] Address [address] [facility] [address] [place] [address] Care Team Providers Care E Business Specialist Name Role Phone Celia Butler MD Primary Care Provider [phone] Encounter Details Date Type Department Care Team ([facility] Contact Info) Description 01/20/2023 Abstract [employer] [address] [place] [address] Celia Butler MD [address] [place] [address] Social History Tobacco Use Types Packs/Day Years [...] Upcoming Encounters Date Type Department Care Team ([facility] Contact Info) Description 04/28/2025 10:00 AM EDT Clinical Support [facility] [address] [place] [address] documented as of this encounter Visit Diagnoses Not on filedocumented in this encounter Care Teams E Business Specialist Relationship Specialty Start Date End Date Celia Butler MD [address] [place] [address] PCP - General Internal Medicine 05/05/15 documented as of this encounter
--- OUTSIDE RECORDS SUMMARY | 2025-04-21 13:49 | XMS_ITS | Encounter Summary ---
Author Organization [facility] Address [address] [place] [id number] Phone Care Team Providers Care Certified Nursing Attendant Name Role Phone Eitan Rowe MD Unavailable [phone] Celia Butler MD Primary Care Pr ovider Encounter Details Date Type Department Care Team (Late st Contact Info) Description 05/14/2019 Procedure Pass [facility] Periop 1st floor [address] [place] [address] Social History Tobacco Use Types Packs/Day Years [...] on filedocumented in this encounter Care Teams Certified Nursing Attendant Relationship Specialty Start Date End Date Celia Butler MD [address] [place] [address] PCP - General Internal Medicine 08/21/18 Eitan Rowe MD [address] [place] [phone] Public Health Worker Cardiology 08/17/16 documented as of this encounter Additional Source Comments The information contained in this document represents components of the legal health record. It is not the complete legal health record.[facility]
== END 2025-04-21 11:30 | disposition home or self-care (01) ==
LOC: HO.PMC 10:38
PROVIDERS: PCP Internal Medicine; Visit Provider Nurse Practitioner Family
DX: M47.812 Spondylosis without myelopathy or radiculopathy, cervical region (principal); M50.30 Other cervical disc degeneration, unspecified cervical region; M62.838 Other muscle spasm
CPT/HCPCS: 99204

== ENCOUNTER → 2025-04-21 10:38 | Outpatient (BNVA) | payer MEDICARE, MEDICAID, SELFPAY | PROVIDERS: PCP Internal Medicine; Visit Provider Nurse Practitioner Family | DX: M47.812 Spondylosis without myelopathy or radiculopathy, cervical region (principal); M50.30 Other cervical disc degeneration, unspecified cervical region; M62.838 Other muscle spasm | CPT/HCPCS: 99202 ==